=== PATIENT | male | born 1935 | race Caucasian/White ===

== ENCOUNTER 2018-10-16 11:18 | Emergency (ER) | payer MEDICARE, OTHER ==
[~2018-10-16] VITALS: Ht 167.6 cm; Wt 76.8 kg
[2018-10-16 12:05] VITALS: Ht 167.6 cm; Wt 76.8 kg
[2018-10-16] MEDS ORDERED: PRAV20TA63 PO (13:43)
[2018-10-16] MEDS ORDERED: ALPR0.5T PO (13:43)
[2018-10-16] MEDS ORDERED: LOSA50TA14 PO (13:44)
[2018-10-16] MEDS ORDERED: MEMA1CAP3 PO (13:44)
[2018-10-16] MEDS ORDERED: OMEP40CA6 PO (13:44)
[2018-10-16] MEDS ORDERED: ASPI-817 PO (13:45)
[2018-10-16] MEDS ORDERED: TAMS0.4C2 PO (13:45)
[2018-10-16] MEDS ORDERED: FINA5TAB4 PO (13:45)
[2018-10-16] MEDS ORDERED: IBUP-1542 PO (14:02)
[2018-10-16 14:30] VITALS: BP 142/78; PULSE 78; RESP 18
--- NOTE | 2018-10-16 15:36 | ERD ---
ER Documentation Chief Complaint Chief Complaint SENT BY PMD FOR LEFT CALF PAIN FOR A DAY, R/O DVT; AMBULATORY. HPI Patient is an 83-year-old male with a history of hypertension and colon cancer presents for calf pain. The patient has left-sided calf pain for the past 2 days. It has been constant and it has been improving over the past 2 days. He denies trauma. It is tender to palpation. He was sent by his doctor for an ultrasound to rule out DVT. His primary doctor is Dr. Lico Interiano. ROS All systems reviewed and are negative except as per history of present illness. Medications Home Meds Active Scripts Ibuprofen* (Motrin*) 600 Mg Tab, 600 MG PO Q6H PRN for PAIN AND OR ELEVATED TEMP, #30 TAB Prov:ZABRINA MILLER MD 10/16/18 Reported Medications Tamsulosin Hcl* (Tamsulosin Hcl*) 0.4 Mg Cap.er.24h, 0.4 MG PO BID, CAP 10/16/18 Finasteride* (Finasteride*) 5 Mg Tablet, 5 MG PO DAILY, TAB 10/16/18 Aspirin* (Aspirin* EC) 81 Mg Tablet.dr, 81 MG PO DAILY, TAB 10/16/18 Memantine HCl/Donepezil HCl (Namzaric 28 mg-10 mg Capsule) 1 Each Cap.spr.24, 1 EACH PO DAILY 10/16/18 Omeprazole* (Omeprazole*) 40 Mg Capsule.dr, 40 MG PO DAILY, #30 CAP 10/16/18 Losartan Potassium* (Losartan Potassium*) 50 Mg Tablet, 50 MG PO DAILY, TAB 10/16/18 Alprazolam* (Xanax*) 0.5 Mg Tab, 0.5 MG PO NEEDED PRN for ANXIETY, TAB 10/16/18 Pravastatin Sodium* (Pravastatin Sodium*) 20 Mg Tablet, 20 MG PO HS, TAB 10/16/18 Allergies Allergies: Coded Allergies: No Known Allergy (Unverified , 10/16/18) PMhx/Soc History of Surgery: No Anesthesia Reaction: No Hx Neurological Disorder: No Hx Respiratory Disorders: No Hx Cardiac Disorders: Yes (HTN) Hx Psychiatric Problems: No Hx Miscellaneous Medical Probl: Yes (COLON CA) Hx Alcohol Use: No Hx Substance Use: No Hx Tobacco Use: No Smoking Status: Never smoker FmHx Family History: No diabetes Physical Exam Vitals Vital Signs Date Temp Pulse Resp B/P (MAP) Pulse Ox O2 O2 Flow FiO2 Time Delivery Rate 10/16/18 98.2 78 18 142/78 100 Room Air 14:30 (99) 10/16/18 98.2 68 18 142/65 95 12:05 (90) Physical Exam Const: No acute distress Head: Atraumatic Eyes: Normal Conjunctiva ENT: Normal External Ears, Nose and Mouth. Neck: Full range of motion. No meningismus. Resp: Clear to auscultation bilaterally Cardio: Regular rate and rhythm, no murmurs Abd: Soft, non tender, non distended. Normal bowel sounds Skin: No petechiae or rashes Back: No midline or flank tenderness Ext: No cyanosis, or edema Neur: Awake and alert, no leg swelling left compared to right, strong DP pulses bilaterally Psych: Normal Mood and Affect Procedures/MDM Ultrasound of left lower extremity is negative per radiology. Patient is a 83-year-old male who presents with left leg pain. Ultrasound was negative for DVT. He has good pulses. There is no swelling or sign of infection. At this point I believe outpatient management is appropriate but the patient will need close follow-up with Dr. Interiano his primary doctor. He can return for any worsening symptoms. Departure Diagnosis: Primary Impression: Pain of left leg Condition: Fair Patient Instructions: Leg Spasm Referrals: Dr. Lico Interiano Additional Instructions: Call your primary care doctor TOMORROW for an appointment during the next 1 W [place].Tell the medical secretary receptionist that you were referred from this facility.See the doctor sooner or return here if your condition worsens before your appointment time. ZABRINA MILLER MD Oct 16, 2018 15:36
== END 2018-10-16 15:49 | disposition home or self-care (01) ==
LOC: E/R 11:18
DX: M79.605 Pain in left leg (principal); I10 Essential (primary) hypertension; Z85.038 Personal history of other malignant neoplasm of large intestine
CPT/HCPCS: 93971